=== PATIENT | female | born 1940 | race Caucasian/White ===

== ENCOUNTER 2016-06-23 17:39 | Inpatient (IN) | payer MEDICARE, BC ==
[2016-06-23] MEDS ORDERED: NS 0.9% 1000 ML* 1,000 ML IV SCH ×2 (18:00→21:15)
[2016-06-23 18:30] LABS: Hematocrit 33 % (35-47); Hemoglobin 10.1 g/dl (12.0-16.0); Mean Corpuscular HGB Conc 31 g/dl (31-36); Mean Corpuscular Hemoglobin 27 pg (27-31); Mean Corpuscular Volume 85 fL (80-97); Red Blood Count 3.82 10^6/ul (4.0-5.4); Red Cell Distribution Width 19 % (10.5-15); White Blood Count 36.6 10^3/ul (3.5-10.8)
[2016-06-23 18:33] LABS: Add Diff/Slide Review? Manual Diff Added; Comments Flag Yes
[2016-06-23 18:34] LABS: Albumin 2.7 g/dL (3.2-5.2); BUN/Creatinine Ratio 37.4 (8-20); C Reactive Protein 109.3 mg/L (< 5.00); Calcium 8.3 mg/dL (8.6-10.3); EGFR African American 77.7 (>60); EGFR Non-African American 60.4 (>60); Globulin 3.7 g/dL (2-4); Magnesium 1.9 mg/dL (1.9-2.7); Potassium 3.8 mmol/L (3.5-5.0); Total Bilirubin 1.8 mg/dL (0.2-1.0); Total Protein 6.4 g/dL (6.4-8.9)
[2016-06-23 18:39] LABS: Troponin I 0.15 ng/mL (<0.04)
[2016-06-23 18:49] LABS: TSH (Thyroid Stimulating Horm) 3.67 mcIU/mL (0.34-5.60)
[2016-06-23 18:55] LABS: Immature Granulocytes 5 % (0-9); Neutrophil % 83 % (38-83); Reactive Lymph % 1 % (0-6)
[2016-06-23 18:56] LABS: Hypochromasia 2+; Schistocytes 2+
[2016-06-23 18:57] LABS: Macrocytosis 1+; Polychromasia 1+
[2016-06-23 19:04] LABS: Add Path Review? YES
[2016-06-23 19:07] LABS: Mean Platelet Volume 7 um3 (7.4-10.4)
[2016-06-23] MEDS ORDERED: Iodixanol* (CONTRAST) 320 MG/ML 100 ML SDV IV ONE (19:08)
[2016-06-23] MEDS ORDERED: Acetaminophen TAB* 325 MG PO ONE (19:31)
--- NOTE | 2016-06-23 19:55 | RAD ---
INDICATION: Chest pain. Short of breath. Evaluate for pulmonary embolus. Carcinoma. Hepatic metastasis. COMPARISON: CTA chest May 31, 2016 TECHNIQUE: Axial source images were obtained from the thoracic inlet to the hemidiaphragms following administration of [address] angiographic technique was utilized. Coronal and sagittal reconstructed images were acquired. CHEST FINDINGS: Neck/thyroid: The visualized neck to include the thyroid appear normal. Chest wall: There are no acute abnormalities of the bony thorax or chest wall. There is no supraclavicular, infraclavicular, or axillary lymphadenopathy. Lungs : There is progression of diffuse, bilateral interstitial and alveolar infiltrates. There is underlying emphysematous change. There are underlying pulmonary parenchymal nodules consistent with known metastasis. There are no endobronchial lesions. Cardiomediastinal structures: There is no CT evidence of acute pulmonary embolic disease. The heart is normal in size. There is no pericardial effusion. There is no evidence of aortic aneurysm or dissection. There is mediastinal adenopathy, unchanged. The esophagus appears normal. Pleura : There are bilateral pleural effusions with a mild interval increase in size. Other: Views the upper abdomen demonstrate multiple hepatic lesions consistent with metastasis and better evaluated on earlier portal venous phase imaging. IMPRESSION: 1. No CT evidence of acute pulmonary embolic disease. 2. Diffuse, bilateral interstitial infiltrates may represent infectious process or lymphangitic spread of tumor. 3. Bilateral pleural effusions, increased. 4. Mediastinal lymphadenopathy, unchanged 5. Emphysema 6. Liver metastasis.
[2016-06-23] MEDS ORDERED: Levofloxacin 750 MG IVPREMIX(* 750 MG/150 ML BAG IVPB ONE (20:17)
[2016-06-23] MEDS ORDERED: Acetaminophen TAB* 325 MG PO PRN (21:11)
--- NOTE | 2016-06-23 21:29 | ED ---
[place] Matthew, scribed for Evgeny Morales MD on 06/23/16 at 1824 . Shortness of Breath - HPI Summary HPI Summary: A 75 y/o female presents to the ED with gradually worsening, constant SOB since last night. The patient was put on 5L of home oxygen yesterday by Dr. Mathew, because her sats were 82-83% She went to the bathroom last night, and was unable to catch her breath. Associated symptoms include productive cough with bright red blood specs and calf pain only with ambulation. She denies fever, chills, and pedal edema. The patient had low potassium at Dr. Mathew's office yesterday and was unable to get a treatment at that time. Hx of liver CA. - History of Current Complaint Chief Complaint: EDShortnessOfBreath Time Seen by Provider: 06/23/16 17:42 Hx Obtained From: Patient Onset/Duration: Gradual Onset, Lasting Hours, Still Present Timing: Constant Current Severity: Moderate Dyspnea At: Rest Associated Signs & Symptoms: Cough (Productive), Cough (Bloody Sputum), Calf Pain/Swelling - calf pain only with ambulation - Allergy/Home Medications Allergies/Adverse Reactions: Allergies Allergy/AdvReac Type Severity Reaction Status Date / Time Ibuprofen Allergy Severe Hives Verified 06/15/16 11:31 PMH/Surg Hx/FS Hx/Imm Hx Endocrine/Hematology History: Denies: Hx Diabetes Cardiovascular History: Reports: Hx Hypertension, Other Cardiovascular Problems/ Disorders - ATHEROSCLEROSIS ARTERIES Denies: Hx Congestive Heart Failure, Hx Pacemaker/ICD Respiratory History: Reports: Other Respiratory Problems/Disorders - BX 2015 Denies: Hx Chronic Obstructive Pulmonary Disease (COPD) GI History: Reports: Hx Gastroesophageal Reflux Disease - ON OCCASION-TUMS PRN Denies: Other GI Disorders History: Denies: Hx Dialysis, Hx Renal Disease, Other Problems/Disorders Sensory History: Reports: Hx Cataracts, Hx Contacts or Glasses - GLASSES Denies: Hx Hearing Aid Opthamlomology History: Reports: Hx Cataracts, Hx Contacts or Glasses - GLASSES Neurological History: Denies: Hx Dementia Psychiatric History: Denies: Hx Panic Disorder - Cancer History Cancer Type, Location and Year: lung cancer 2015 Hx Chemotherapy: No Hx Radiation Therapy: No - Surgical History Surgery Procedure, Year, and Place: > cholecystectomy. > endarterectomy in 2016 at age 74. > splenectomy. > tonsillectomy. > tubal ligation in 1970 at age 28, RLL Lung lobectomy -10/2015 Hx Anesthesia Reactions: No Infectious Disease History: No Infectious Disease History: Denies: Hx Hepatitis, Hx Human Immunodeficiency Virus (HIV), Traveled Outside the [place] in Last 30 Days - Family History Family History: No FHx of breast CA. No FHx of malignant hyperthermia. No FHx of anesthesia reaction - Social History Alcohol Use: Rare Substance Use Type: Reports: None Smoking Status (MU): Former Smoker Type: Cigarettes Have You Smoked in the Last Year: No Review of Systems Constitutional: Negative Negative: Fever, Chills Eyes: Negative ENT: Negative Cardiovascular: Negative Positive: Shortness Of Breath, Cough - productive with bright red sputum Gastrointestinal: Negative Genitourinary: Negative Positive: Other - calf pain with ambulation Skin: Negative Neurological: Negative Psychological: Normal All Other Systems Reviewed And Are Negative: Yes Physical Exam - Summary Physical Exam Summary: mild respiratory distress Triage Information Reviewed: Yes Vital Signs On Initial Exam: Initial Vitals Temp Pulse Resp BP Pulse Ox 98.6 F 95 24 153/76 93 06/23/16 17:42 06/23/16 17:42 06/23/16 17:42 06/23/16 17:42 06/23/16 17:42 Vital Signs Reviewed: Yes Appearance: Positive: No Pain Distress Skin: Positive: Warm, Dry Head/Face: Positive: Normal Head/Face Inspection Eyes: Positive: EOMI, NEELAM ENT: Positive: Normal ENT inspection Neck: Positive: Supple, Nontender Respiratory/Lung Sounds: Positive: Clear to Auscultation, Breath Sounds Present , Other - Sating at 93% on 10L of oxygen Cardiovascular: Positive: Tachycardia Abdomen Description: Positive: Nontender, Soft Bowel Sounds: Positive: Present Musculoskeletal: Positive: Normal, Strength/ROM Intact, Other - NO calf tenderness. Negative: Edema Left, Edema Right Neurological: Positive: Normal, Sensory/Motor Intact, Alert, Oriented to Person Place, Time Psychiatric: Positive: Affect/Mood Appropriate Diagnostics - Vital Signs Vital Signs Temp Pulse Resp BP Pulse Ox 06/23/16 17:42 98.6 F 95 24 153/76 93 - Laboratory Lab Results: Lab Results 04/19/17 04/19/17 04/19/17 Range/Units 18:00 18:00 18:00 WBC 36.6 H (3.5-10.8) 10^3/ul RBC 3.82 L (4.0-5.4) 10^6/ul Hgb 10.1 L (12.0-16.0) g/dl Hct 33 L (35-47) % MCV 85 (80-97) fL MCH 27 (27-31) pg MCHC 31 (31-36) g/dl RDW 19 H (10.5-15) % Plt Count 11 L* (150-450) 10^3/ul MPV 7 L (7.4-10.4) um3 Immature Gran % (Auto) 5 (0-9) % Absolute Neuts (auto) 32.2 H (1.5-7.7) 10^3/ul Absolute Lymphs (auto) 2.2 (1.0-4.8) 10^3/ul Absolute Monos (auto) 2.2 H (0-0.8) 10^3/ul Absolute Eos (auto) Not Reportable Absolute Basos (auto) Not Reportable Absolute Nucleated RBC Not Reportable Neutrophils % 83 (38-83) % Band Neutrophils % 5 (0-8) % Lymphocytes % 5 L (25-47) % Reactive Lymphs % 1 (0-6) % Monocytes % 6 (0-13) % Normal RBC Morphology Not Reportable Polychromasia 1+ Hypochromasia 2+ Macrocytosis 1+ Schistocytes 2+ Hem Pathologist Commnt Pending INR (Anticoag Therapy) 1.18 H (0.89-1.11) APTT 90.7 H (26.0-36.3) seconds Sodium 138 (133-145) mmol/L Potassium 3.8 (3.5-5.0) mmol/L Chloride 107 (101-111) mmol/L Carbon Dioxide 23 (22-32) mmol/L Anion Gap 8 (2-11) mmol/L BUN 34 H (6-24) mg/dL Creatinine 0.91 (0.51-0.95) mg/dL Est GFR ( Amer) 77.7 (>60) Est GFR (Non-Af Amer) 60.4 (>60) BUN/Creatinine Ratio 37.4 H (8-20) Glucose 123 H (70-100) mg/dL Lactic Acid (0.5-2.0) mmol/L Calcium 8.3 L (8.6-10.3) mg/dL Magnesium 1.9 (1.9-2.7) mg/dL Total Bilirubin 1.80 H (0.2-1.0) mg/dL AST 35 (13-39) U/L ALT 16 (7-52) U/L Alkaline Phosphatase 187 H (34-104) U/L Total Creatine Kinase 16 (10-223) U/L CK-MB (CK-2) 2.8 (0.6-6.3) ng/mL Troponin I 0.15 H* (<0.04) ng/mL C-Reactive Protein 109.30 H (< 5.00) mg/L B-Natriuretic Peptide ( - 100) pg/mL Total Protein 6.4 (6.4-8.9) g/dL Albumin 2.7 L (3.2-5.2) g/dL Globulin 3.7 (2-4) g/dL Albumin/Globulin Ratio 0.7 L (1-3) Lipase 38 (11.0-82.0) U/L TSH 3.67 (0.34-5.60) mcIU/mL Blood Type Antibody Screen 06/23/16 06/23/16 06/23/16 Range/Units 18:00 18:00 18:00 WBC (3.5-10.8) 10^3/ul RBC (4.0-5.4) 10^6/ul Hgb (12.0-16.0) g/dl Hct (35-47) % MCV (80-97) fL MCH (27-31) pg MCHC (31-36) g/dl RDW (10.5-15) % Plt Count (150-450) 10^3/ul MPV (7.4-10.4) um3 Immature Gran % (Auto) (0-9) % Absolute Neuts (auto) (1.5-7.7) 10^3/ul Absolute Lymphs (auto) (1.0-4.8) 10^3/ul Absolute Monos (auto) (0-0.8) 10^3/ul Absolute Eos (auto) Absolute Basos (auto) Absolute Nucleated RBC Neutrophils % (38-83) % Band Neutrophils % (0-8) % Lymphocytes % (25-47) % Reactive Lymphs % (0-6) % Monocytes % (0-13) % Normal RBC Morphology Polychromasia Hypochromasia Macrocytosis Schistocytes Hem Pathologist Commnt INR (Anticoag Therapy) (0.89-1.11) APTT (26.0-36.3) seconds Sodium (133-145) mmol/L Potassium (3.5-5.0) mmol/L Chloride (101-111) mmol/L Carbon Dioxide (22-32) mmol/L Anion Gap (2-11) mmol/L BUN (6-24) mg/dL Creatinine (0.51-0.95) mg/dL Est GFR ( Amer) (>60) Est GFR (Non-Af Amer) (>60) BUN/Creatinine Ratio (8-20) Glucose (70-100) mg/dL Lactic Acid 1.8 (0.5-2.0) mmol/L Calcium (8.6-10.3) mg/dL Magnesium (1.9-2.7) mg/dL Total Bilirubin (0.2-1.0) mg/dL AST (13-39) U/L ALT (7-52) U/L Alkaline Phosphatase (34-104) U/L Total Creatine Kinase (10-223) U/L CK-MB (CK-2) (0.6-6.3) ng/mL Troponin I (<0.04) ng/mL C-Reactive Protein (< 5.00) mg/L B-Natriuretic Peptide 594 H ( - 100) pg/mL Total Protein (6.4-8.9) g/dL Albumin (3.2-5.2) g/dL Globulin (2-4) g/dL Albumin/Globulin Ratio (1-3) Lipase (11.0-82.0) U/L TSH (0.34-5.60) mcIU/mL Blood Type O Positive Antibody Screen Pending Result Diagrams: 06/23/16 18:00 06/23/16 18:00 Lab Statement: Any lab studies that have been ordered have been reviewed, and results considered in the medical decision making process. - CT Chest CTA CT Interpretation: Positive (See Comments) - IMPRESSION: 1. No CT evidence of acute pulmonary embolic disease. 2. Diffuse, bilateral interstitial infiltrates may represent infectious process or lymphangitic spread of tumor. 3. Bilateral pleural effusions, increased. 4. Mediastinal lymphadenopathy, unchanged 5. Emphysema 6. Liver metastasis. CT Interpretation Completed By: Radiologist - EKG 18:42 Cardiac Rate: NL - 89 bpm EKG Rhythm: Sinus Rhythm Ectopy: None EKG Interpretation: LVH Course/Dx - Course Course Of Treatment: CRITICAL CARE TIME LESS THAN 30 MINUTES Assessment/Plan: DISCUSSED RESULTS WITH PATIENT//DR LYON. ADMIT HOSPITALIST STABLE. - Diagnoses Provider Diagnoses: Pneumonia, Temporary low platelet count, Hypoxia - Physician Notifications Discussed Care of Patient With: Dr. Lyon (Oncology) at 18:03 -- Notified of patient's history. Dr. Lyon (Oncology) at 20:05 -- Notified of patient's imaging results. Dr. Cat (Hosptialist) at 20:16 -- Notified of patient's history and will admit the patient into his care. Discharge - Discharge Plan Condition: Stable Disposition: ADMITTED TO [facility] Referrals: Oli Beyer MD [Primary Care Provider] - The documentation as recorded by the Chato m[place] Matthew accurately reflects the service I personally performed and the decisions made by , Evgeny Morales MD.
[2016-06-23] MEDS ORDERED: Ondansetron INJ* 2 MG/ML VIAL IV ONE (22:56)
[2016-06-24] MEDS ORDERED: Ondansetron INJ* 2 MG/ML VIAL IV PRN (00:53)
--- NOTE | 2016-06-24 01:04 | HP ---
HISTORY AND PHYSICAL: DATE OF ADMISSION: 06/23/16 PRIMARY CARE PHYSICIAN: Dr. Oli Beyer. ATTENDING PHYSICIAN: Dr. Saturnino Cat* (dictated by sEtella Leigh NP ). CHIEF COMPLAINT: Shortness of breath. HISTORY OF PRESENT ILLNESS: Ms. Bañuelos is a 75-year-old female with a past medical history significant for right lung adenocarcinoma, status post right lower lobectomy, hypertension, atherosclerosis and GERD, who presented to the emergency room today with complaints of shortness of breath. The patient states that she had sudden onset of shortness of breath yesterday with gradual worsening since the onset. The patient reports being seen in Dr. Mathew's office yesterday and being started on home oxygen at 5 L because her oxygen saturations were low in his office yesterday. The patient denies shortness of breath at rest, reports shortness of breath with exertion. The patient denies any fever, chills, or other cold symptoms, diarrhea or diaphoresis. The patient reports some chest discomfort with deep inspiration. She also reports cough with some mucous production with specs of blood in it. She reports nausea. She denied any diarrhea or urinary symptoms. The patient states that she had a low potassium yesterday at Dr. Mathew's office and was unable to get her chemotherapy and receive IV potassium replacement. Due to the patient's continued shortness of breath, she decided to present to the emergency room for further evaluation of her symptoms. While in the emergency room, the patient received Tylenol, normal saline, and had an EKG showing a sinus rhythm and no acute ischemia. The patient had a chest CT showing no evidence of a pulmonary embolus but with bilateral infiltrates and bilateral pleural effusions with mediastinal lymph node enlargement, emphysema and liver metastasis. The patient had labs that were significant for white blood cell count of 36,000, lactic acid 1.8, troponin 0.15 , CRP 109.30. Hospitalists were asked to evaluate this patient for admission. PAST MEDICAL HISTORY: 1. Right lung adenocarcinoma. 2. Hypertension. 3. Atherosclerosis. 4. GERD. 5. Depression. PAST SURGICAL HISTORY: 1. Status post right lower lobectomy in October of 2015. 2. Status post right carotid endarterectomy. 3. Status post splenectomy in 1953. 4. Status post laparoscopic cholecystectomy in 2001. 5. Status post tubal ligation in 1971. 6. Status post bilateral cataract extraction. 7. Status post hernia repair in 2016. HOME MEDICATIONS: Include: 1. Metoprolol tartrate 25 mg oral daily. 2. Prednisone 40 mg oral daily. The patient states she was started on a 20- day course and started on 06/17/16. 3. Citalopram 20 mg oral daily. 4. Aspirin 81 mg oral daily. ALLERGIES: IBUPROFEN causes hives. FAMILY HISTORY: The patient reports a mother with history of hypertension and heart disease and a maternal grandmother with history of heart disease. The patient's sister with prediabetes. The patient's maternal aunt had a history of breast cancer. SOCIAL HISTORY: The patient is a former smoker. She quit smoking a year ago. Prior to that, she had approximately 45-year one pack a day smoking history. The patient denies alcohol or recreational drug use. 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 She is and lives with her , Varun Bañuelos, who will be her surrogate decision maker in the event that she is unable to make decisions for herself. REVIEW OF SYSTEMS: I performed a 14-point review of systems. All the pertinent positives and negatives are mentioned in the history of present illness. The remaining review of systems are negative. PHYSICAL EXAMINATION GENERAL APPEARANCE: The patient is alert, pleasant, appears to be in no acute distress. VITAL SIGNS: Temperature 98.6, heart rate 92, respiratory rate 24, O2 sat 94% on OxyMask at 10 L, blood pressure 154/47. HEENT: Normocephalic, atraumatic. Pupils are equal and reactive to light. Extraocular movements are intact. RESPIRATORY: There is no accessory muscle use and the lungs are clear to auscultation bilaterally. CARDIOVASCULAR: Regular rate and rhythm. S1 and S2 are present. Tachycardic. There are no murmurs, rubs, or gallops heard. ABDOMEN: Soft, nontender, nondistended. There are bowel sounds present x4. EXTREMITIES: There is no lower extremity edema. DP and PT pulses are 2+ and symmetric. MUSCULOSKELETAL: There is no clubbing or cyanosis noted. The patient exhibits good strength in all extremities. NEUROLOGICAL: The patient is alert and oriented x4. Cranial nerves II through XII are grossly intact. PSYCHOLOGICAL: The patient is calm and cooperative. SKIN: There are no rashes or abnormalities seen. DIAGNOSTIC STUDIES/LABORATORY DATA: Sodium 138, potassium 3.8, chloride 107, CO2 23, BUN 34, creatinine 0.91, glucose 123. Calcium 8.3, alkaline phosphatase 187, total bilirubin 1.8, troponin 0.15, CRP 109.30, lactic acid 1.8. White blood cell count 36.6, hemoglobin 10.1, hematocrit 33, and platelet count 11. EKG shows a sinus rhythm with rate of 89 and LVH. There are no acute signs of ischemia. There are no previous EKGs for comparison. Chest CTA from today. Radiologist's impression: No CT evidence of acute pulmonary embolic disease. Diffuse bilateral interstitial infiltrates may represent infectious process or lymphangitic spread of tumor. Bilateral pleural effusions, increased mediastinal lymphadenopathy, unchanged. Emphysema. Liver metastasis. IMPRESSION: Ms. Bañuelos is a 75-year-old female with past medical history significant for right lung adenocarcinoma with metastasis to the liver, hypertension, atherosclerosis, gastroesophageal reflux disease and depression, who presents to the emergency room with complaints of shortness of breath. She will be admitted as an inpatient for shortness of breath and pneumonia. ASSESSMENT AND PLAN: 1. Shortness of breath. The patient's CT of the chest shows bilateral interstitial infiltrates. The patient's white blood cell count is 36,000. This could be caused from prednisone, but could also be caused from an infectious process. The patient will be started on Levaquin. We will recheck her CBC in the morning. At this time, the patient is afebrile. The patient is currently requiring 10 L of oxygen via OxyMask. The patient also has bilateral pleural effusions and will defer treatment of this to the oncology team if they feel that the patient should undergo a thoracentesis. 2. Elevated troponin. The patient denies any chest discomfort. We will trend her troponins and monitor on telemetry. 3. Thrombocytopenia. The patient's platelet count is 11. In the event that she is possibly going to have a thoracentesis, we will give her a unit of platelets tonight and recheck her labs in the morning. 4. Hypertension. The patient will be continued on her home metoprolol dose. 5. Depression. We continue the patient's home Celexa. 6. Fluids, electrolytes, and nutrition. Heart healthy diet. 7. Code status. Full code. 8. DVT prophylaxis. The patient is at highest risk. At this time, we will hold chemical DVT prophylaxis due to the patient's thrombocytopenia. We will place her on SCDs. 9. Disposition. Inpatient. TIME SPENT: Time for this admission was 60 minutes and 35 minutes were spent face- to-face with the patient and discussing medications, past medical history, and events leading up to their arrival today and performing a physical examination. The case has been reviewed with the attending, Dr. Cat, who agrees with the plan of care. Reviewed by REMEDIOS WILSON-Javid 06/24/16 1114 CC: Dr. Oli Beyer; Dr. Mark Mathew* [id number]/[facility] #: [id number] MTDD
[2016-06-24 05:49] LABS: BUN/Creatinine Ratio 36.8 (8-20); EGFR Non-African American 57.5 (>60); Potassium 3.8 mmol/L (3.5-5.0)
[2016-06-24 05:50] LABS: Calcium 8.4 mg/dL (8.6-10.3); Troponin I 0.2 ng/mL (<0.04)
[2016-06-24 07:48] LABS: Hematocrit 30 % (35-47); Hemoglobin 9.2 g/dl (12.0-16.0); Mean Corpuscular HGB Conc 31 g/dl (31-36); Mean Corpuscular Hemoglobin 27 pg (27-31); Mean Corpuscular Volume 87 fL (80-97); Mean Platelet Volume 9 um3 (7.4-10.4); Red Blood Count 3.41 10^6/ul (4.0-5.4); Red Cell Distribution Width 19 % (10.5-15); White Blood Count 38.2 10^3/ul (3.5-10.8)
[2016-06-24 07:49] LABS: Comments Flag Yes
[2016-06-24 07:50] LABS: Add Diff/Slide Review? Slide Review Added
[2016-06-24] MEDS: predniSONE TAB* 20 MG PO SCH (08:00)
[2016-06-24] MEDS: Metoprolol Tartrate TAB* 25 MG PO SCH (08:01)
[2016-06-24] MEDS: Citalopram TAB* 20 MG PO SCH (08:01)
--- NOTE | 2016-06-24 10:21 | PN ---
Progress Note - Progress Note SOAP: Subjective: []Continued SOB with clear progression over past week. She is a little better on high does O2 but not much better. No fevers. Does not feel that steroids helped. Acetaminophen (Tylenol Tab*) 650 mg PO Q4H PRN PRN Reason: FEVER/PAIN Citalopram Hydrobromide (Celexa Tab*) 20 mg PO DAILY [facility] Last Admin: 06/24/16 08:01 Dose: 20 mg Metoprolol Tartrate (Lopressor Tab*) 25 mg PO DAILY [facility] Last Admin: 06/24/16 08:01 Dose: 25 mg Morphine Sulfate (Morphine Inj (Syringe)*) 2 mg IV Q2H PRN PRN Reason: SHORTNESS OF BREATH Ondansetron HCl (Zofran Inj*) 4 mg IV Q4H PRN PRN Reason: NAUSEA Last Admin: 06/24/16 06:01 Dose: 4 mg Prednisone (Deltasone Tab*) 40 mg PO DAILY [facility] Last Admin: 06/24/16 08:00 Dose: 40 mg Trimethoprim/Sulfamethoxazole (Bactrim Ds 800/160 Tab*) 2 tab PO BID [facility] Objective: [] Vital Signs Temp Pulse Resp BP Pulse Ox 98.5 F 107 26 164/65 90 06/24/16 07:20 06/24/16 07:20 06/24/16 07:32 06/24/16 07:20 06/24/16 07:20 HEENT - mucosa moist, pale lungs w/ crackles both sides, poor air exchange +BS, NT and ND Ext w/o c/C/E CT w/ increased infiltrate. Assessment: []75 year old with progressive SOB and pulmonary infiltrated. I am concerned it is progressive cancer, differential still includes infection, lack of response to steroids make immunotherpy side effect less likely. If cancer no therapy, chemotherapy would make her worse and not better. Discussed possibility of bronchoscopy or stopping evaluation and therapy. She is ready to stop. Wants to get home with hospice. Will arrange, prognosis guarded and goal is to have her at home with her family when she dies. Plan: []1. Will consult hospice and would like to get her home today. 2. Continue Oxygen at home 3. Given possible infection, stop Lovenox and trial of Bactrim DS 2 bid. Will stop if not tolerated. Continue steroids. 4. DNR/DNI 5. For SOB, add Morphine 2 mg IV q 2 hr prn. face time 40 min, patient and chart.
[2016-06-24 10:49] LABS: Immature Granulocytes 1 % (0-9); Neutrophil % 87 % (38-83)
[2016-06-24 10:51] LABS: Add Path Review? YES; Hypochromasia 1+; Macrocytosis 1+; Microcytosis 1+; Schistocytes 2+
[2016-06-24] MEDS: Morphine INJ* 2 MG/ML 1 ML SYRINGE IV PRN ×2 (11:12→15:53)
[2016-06-24] MEDS: Sulfamethox/Trimethoprim DS 800/160* TAB PO SCH (21:08)
[2016-06-25] MEDS: Morphine INJ* 2 MG/ML 1 ML SYRINGE IV PRN ×2 (00:54→04:26)
--- NOTE | 2016-06-25 07:46 | RAD ---
HISTORY: Altered mental status COMPARISONS: MRI dated May 03, 2016 TECHNIQUE: Multiple contiguous axial CT scans were obtained of the head without intravenous contrast. FINDINGS: HEMORRHAGE/INFARCT: There is no hemorrhage or acute infarct. MASSES/SHIFT: There is no mass or shift. EXTRA-AXIAL SPACES: There are no extra-axial fluid collections. SULCI AND VENTRICLES: The sulci and ventricles are normal in size and position for the patient's stated age. CEREBRUM: There is a right parietal encephalomalacia. Accounting for differences in technique, this is stable from the previous MRI examination. There is hypoattenuation of the right frontal periventricular white matter corresponding to white matter changes noted on the previous MRI. BRAINSTEM: There are no focal parenchymal abnormalities. CEREBELLUM: There are no focal parenchymal abnormalities. VESSELS: The vessels are grossly normal. PARANASAL SINUSES: The paranasal sinuses are clear. ORBITS: The orbits are unremarkable. BONES AND SOFT TISSUE: No bone or soft tissue abnormalities are noted. OTHER: None IMPRESSION: 1. NO ACUTE INTRACRANIAL PATHOLOGY. 2. 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
[2016-06-25] MEDS ORDERED: Metoprolol Tartrate IV* 1 MG/ML 5 ML VIAL IV PRN (09:56)
[2016-06-25] MEDS ORDERED: Hydrocortisone INJ* 100 MG VIAL IV SCH (10:00)
[2016-06-25] MEDS: Citalopram TAB* 20 MG PO SCH (10:12)
[2016-06-25] MEDS: Metoprolol Tartrate TAB* 25 MG PO SCH (10:12)
[2016-06-25] MEDS: predniSONE TAB* 20 MG PO SCH (10:12)
[2016-06-25] MEDS: Sulfamethox/Trimethoprim DS 800/160* TAB PO SCH (10:13)
[2016-06-25 12:00] VITALS: BP 131/56
--- NOTE | 2016-06-25 19:19 | CONS ---
PALLIATIVE CARE CONSULT: DATE OF CONSULT: 06/25/16 PRIMARY CARE PHYSICIAN: Oli Beyer MD REQUESTING PHYSICIAN FOR CONSULT: Mark Mathew MD HOSPITAL COURSE: This is a 75-year-old female with a past medical history of lung adenocarcinoma, who presented to the emergency room on the , with shortness of breath. She had chest a CTA on admission that showed no evidence of PE; diffuse bilateral interstitial infiltrates, may represent infectious process or lymphangitic spread of tumor; bilateral pleural effusions; increased mediastinal lymphadenopathy, unchanged; emphysema; liver metastasis. The patient was admitted with broad-spectrum antibiotics, IV fluids, and admitted to the floor on 10 L of oxygen. She was followed up and taken over service by the oncology service and they were discussing treatment options. The patient was clear that she wanted to go home with hospice, as there were very limited options for her as chemotherapy would not improve her quality of life. The evening of the , last evening, the patient had acute change in her mental status, became altered and had right-sided paralysis. She was not responding to voice. A stat CT was done, which showed no acute intracranial pathology, right parietal encephalomalacia consistent with remote infarct. The patient has remained, unfortunately, unresponsive, but not showing any signs of discomfort. I spoke with the briefly and with the son as well and plans have been arranged for the patient to be discharged to the residence facility instead of going home with hospice in light of her new stroke that occurred during this admission. Unable to obtain the review of systems due to the patient's altered mental status. PAST MEDICAL HISTORY: 1. Right lung adenocarcinoma with metastasis. 2. Hypertension. 3. Atherosclerosis. 4. GERD. 5. Depression. INPATIENT MEDICATIONS: None provided. ALLERGIES: IBUPROFEN. FAMILY HISTORY: Unable to obtain. SOCIAL HISTORY: Former smoker, [id number] history. No alcohol use. 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 She is , lives with her , Varun, who is also her healthcare proxy. Her MOLST form has been completed, which is DNR/ DNI, comfort measures, do not return to the hospital. REVIEW OF SYSTEMS: Unable to obtain. PHYSICAL EXAM: Vitals: Temp 98.6, pulse rate 104, respiratory rate 28, oxygen saturation 89% on oxygen mask, blood pressure 131/56. General: The patient minimally responsive, in no acute distress, rest of the exam deferred. LABORATORY DATA: White count 38.2, hemoglobin 9.2, hematocrit 30, platelets 64. Sodium 136, potassium 3.8, chloride 109, bicarb 21, BUN 35, creatinine 0.95. Troponin 0.2. ASSESSMENT: This is a 75-year-old female with the past medical history of lung cancer with metastasis, who presented with shortness of breath with suspected progression of her lung cancer with no further treatment option. The patient was clear that she wanted to go home with hospice; unfortunately, the patient appeared to have suffered an acute infarct resulting in minimally responsive right-sided hemiparesis. Fortunately, there is a bed available at the hospice residence and the patient is being discharged today to the residence facility with the terminal diagnosis of lung cancer with metastasis and secondary diagnosis of acute cerebrovascular accident. Thank you for this consultation. PATIENT TIME: More than 60 minutes was spent during this consultation, more than half the time was spent in direct patient contact. CC: Oli Beyer MD* [id number]/[facility] #: [id number] MARTINA
[2016-06-25] MEDS ORDERED: Levofloxacin 750 MG IVPREMIX(* 750 MG/150 ML BAG IVPB SCH (22:00)
--- NOTE | 2016-06-26 05:05 | DS ---
DISCHARGE SUMMARY: DATE OF ADMISSION: 06/23/16 DATE OF DISCHARGE: 06/25/16 PRINCIPAL DIAGNOSES: Include: 1. Cholangiocarcinoma with progression of disease. 2. Acute shortness of breath/dyspnea. 3. New onset of right hemiplegia. 4. Terminal care. HOSPITAL COURSE: Briefly, the patient was admitted to the hospital with acute shortness of breath a nd a CTA of the thoracic cavity was initialized. She did not have any specific pulmonary embolism o r acute findings; however, there were diffuse bilateral infiltrates, which represent lymphangitic sp read of tumor/infectious process. There were bilateral pleural effusions, which had increased media stinal adenopathy, emphysema, and liver metastases. She, prior to her admission, was placed on aggr essive steroid orally in efforts to control her shortness of breath; however, the patient was admitt ed through the emergency room as she was unable to care for her oxygen needs at home. She has been typically requiring at least 15 L nasal cannula of oxygen over the night on 06/24/16. The patient d id have an episode of acute right-sided hemiplegia. A CT scan of the brain was initiated, which did not reveal significant acute pathology. The patient and family were ready to, after a significant discussion, take her home with hospice secondary to this acute episode last night. The patient's fa agueda has opted to try to get her to the hospice residents as they feel that the amount of care would be insurmountable. She will therefore be transferred to the hospice residents today. Most of her m edications have been discontinued secondary to swallowing difficulties and she will be placed on ice chips and liquids, medications to keep her comfortable. The above was discussed with Dr. Mark peguero and he has actually met with the family today as well and she will be discharged shortly as soon as we can find transportation for her to be transferred over. She certainly is do not resuscitate and has a MOLST document, which will follow her and we will continue to care for her from the office under Dr. Mathew's attendingship. TAYA ASHLEY [id number]/[facility] #: [id number]
== END 2016-06-25 12:00 | disposition hospice, home (50) | DRG 194 ==
LOC: ED 17:39 → MEDTELE 21:11
PROVIDERS: ADMIT Internal Medicine; ATTEND Internal Medicine Hematology & Oncology
PROC: 30233R1 Transfusion of Nonautologous Platelets into Peripheral Vein, Percutaneous Approach (ICD-10-PCS; principal; 2016-06-24)
DX: J18.9 Pneumonia, unspecified organism (principal); C34.91 Malignant neoplasm of unspecified part of right bronchus or lung; J90 Pleural effusion, not elsewhere classified; G81.91 Hemiplegia, unspecified affecting right dominant side; C78.7 Secondary malignant neoplasm of liver and intrahepatic bile duct; C78.89 Secondary malignant neoplasm of other digestive organs; Z99.81 Dependence on supplemental oxygen; J43.9 Emphysema, unspecified; D47.3 Essential (hemorrhagic) thrombocythemia; I10 Essential (primary) hypertension; Z88.8 Allergy status to other drugs, medicaments and biological substances; K21.9 Gastro-esophageal reflux disease without esophagitis; H26.9 Unspecified cataract; Z98.51 Tubal ligation status; Z87.891 Personal history of nicotine dependence; I70.90 Unspecified atherosclerosis; F32.9 Major depressive disorder, single episode, unspecified; R79.89 Other specified abnormal findings of blood chemistry; Z66 Do not resuscitate; Z51.5 Encounter for palliative care; Z98.42 Cataract extraction status, left eye; Z98.41 Cataract extraction status, right eye; Z82.49 Family history of ischemic heart disease and other diseases of the circulatory system; Z80.3 Family history of malignant neoplasm of breast
CPT/HCPCS: 36415; 36591; 70450; 71275; 80048; 80053; 82248; 82550; 82553; 83605; 83690; 83735; 83880; 84443; 84484; 85025; 85060; 85610; 85730; 86140; 86850; 86900; 86901; 93005; 94760; 96365; 96366; 96367; 99214; 99232; 99233; A9270-GY; J1100; J1200; J1642; J1720; J2270; J2405; J3480; J7512; J9171; J9308; P9035; Q9967